=== PATIENT | female | born 1985 | race Caucasian/White ===

== ENCOUNTER 2020-10-20 11:34 | Emergency (ER) | payer OTHER, SELFPAY ==
[2020-10-20 11:44] VITALS: BP 124/69; PULSE 81; RESP 14; TEMP 37.7; O2SAT 99
--- NOTE | 2020-10-20 12:55 | ED.URI ---
HPI - URI/Sore Throat General Chief Complaint: Upper Respiratory Infection Stated Complaint: Sore Throat, sneezing, congestion Source: patient and RN notes reviewed Mode of arrival: ambulatory Limitations: no limitations History of Present Illness HPI Narrative: 34-year-old female who presents to [facility] with complaints of stuffy nose, sinus drainage which is green in color, sneezing, sore throat, and headache for the past 2 days. Patient states that she has increased pain with swallowing. Patient reports that she has been taking Benadryl and Ibuprofen for her symptoms. Patient reports that she is unsure if any fevers but has had some feelings of being hot and cold. Patient denies ny acute cough, no shortness of breath or wheezing, denies any ear pain. MD elicited complaint: sore throat, rhinorrhea, nasal congestion and other (Headache) Related Data Home Medications Medication Instructions Recorded Confirmed cholecalciferol (vitamin D3) 25 mcg PO DAILY 10/20/20 10/20/20 [Vitamin D3] cyanocobalamin (vitamin B-12) 100 mcg PO DAILY 10/20/20 10/20/20 [Vitamin B-12] drospirenone-ethinyl estradiol 1 tablet PO DAILY 10/20/20 10/20/20 [Vestura (28)] Allergies Allergy/AdvReac Type Severity Reaction Status Date / Time No Known Allergies Allergy Verified 10/20/20 11:55 Review of Systems Review of Systems: CONSTITUTIONAL:Unknown if fevers, positive for chills, or sweats. EYES: Denies visual changes, redness, or discharge. ENT: Positive for rhinorrhea, congestion, sore throat, no otalgia. CARDIOVASCULAR: Denies chest pain, palpitations, or edema. RESPIRATORY: Denies cough or dyspnea. GASTROINTESTINAL: Denies abdominal pain, nausea, vomiting, or diarrhea. GENITOURINARY: Denies dysuria or hematuria. SKIN: Denies rash or itching. MUSCULOSKELETAL: Denies back pain, joint pain, or myalgia. NEUROLOGIC: Positive for headache,no numbness, or weakness. PSYCHIATRIC: Denies anxiety or depression. All systems reviewed & are unremarkable except as noted in HPI and below PMFSH Past Medical History Medical History (Updated 10/25/20 @ 08:09 by Netta Tiwari NP) Endometriosis Fracture of left wrist Surgical History Surgical History (Updated 10/25/20 @ 08:02 by Netta Tiwari NP) History of removal of ovarian cyst Family History Family History (Updated 10/25/20 @ 08:03 by Netta Tiwari NP) Other No significant family history Social History Social History (Updated 10/25/20 @ 08:05 by Netta Tiwari NP) Smoking status: Former smoker Tobacco type: cigarettes Additional smoking assessment comments: quit tobacco use 06/2020 after 10 years, now vapes Alcohol intake: current Alcohol use details: rare social Substance use type: does not use Living arrangements: with family Gender identity (if verbalized by the patient): Female Comments At time of signature, agree with nursing past medical, surgical, social and family history. There is no relevant family history pertinent to the presenting complaint Exam Narrative: GENERAL: Well-appearing, well-nourished, and in no acute distress. HEAD: Normocephalic, atraumatic. EYES: PERRLA and EOMI. ENT: Nares red with turbinates red and swollen, green rhinorrhea no epistaxis. Mucous membranes moist.TM's normal with dull light reflex, throat red with no tonsil swelling or lesion, post nasal drainage noted, headache and maxillary facial pressure noted. NECK: Supple.no lymphadenopathy CHEST: Clear to auscultation. No respiratory distress.rare cough noted, SAO2 99% on room air HEART: Regular rate and rhythm. No murmur heard. Normal peripheral pulses. ABDOMEN: Soft, nontender, nondistended, normal active bowel sounds. EXTREMITIES: Normal range of motion. No edema. SKIN: Warm, dry, no rash. NEURO: No focal deficits. Alert and oriented x3. Course Vital Signs Vital signs: Vital Signs Temperature 37.7 C H 10/20/20 11:44 Pulse Rate 81
== END 2020-10-20 13:14 | disposition home or self-care (01) ==
PROVIDERS: Emergency Provider Registered Nurse; PCP Family Medicine
DX: J32.9 Chronic sinusitis, unspecified (principal)
CPT/HCPCS: 87081; 87880; 99213; G0463

== ENCOUNTER 2021-12-20 18:48 | Emergency (ER) | payer OTHER, SELFPAY ==
[2021-12-20 18:54] VITALS: BP 130/78; PULSE 71; RESP 16; TEMP 36.9; O2SAT 99
--- NOTE | 2021-12-20 20:00 | ED.GENADULT ---
HPI - General Adult General Chief complaint: Upper Respiratory Infection Stated complaint: Sore Throat/Ear Pain Source: patient and family Mode of arrival: ambulatory Limitations: no limitations History of Present Illness HPI narrative: Patient presents for evaluation of sore throat for the last month. She reports sharp left-sided ear pain as well. No fever, chills, nausea, vomiting, respiratory symptoms. No recent sick contacts to her knowledge. She notices her symptoms more with certain positional movements of her head. She does vape but has not changed products as of late. She has a history of acid reflux but is no longer on medication for it. No additional complaints or concerns. Related Data Home Medications Medication Instructions Recorded Confirmed drospirenone 3 mg-ethinyl 1 tablet PO DAILY 10/20/20 10/20/20 estradiol 0.02 mg tablet (Vestura (28)) Allergies Allergy/AdvReac Type Severity Reaction Status Date / Time No Known Allergies Allergy Verified 10/20/20 11:55 Review of Systems Review of Systems: CONSTITUTIONAL: Denies fever, chills, or sweats. EYES: Denies visual changes, redness, or discharge. ENT: Reports sore throat and left-sided ear pain. Denies rhinorrhea, congestion. CARDIOVASCULAR: Denies chest pain, palpitations, or edema. RESPIRATORY: Denies cough or dyspnea. GASTROINTESTINAL: Denies abdominal pain, nausea, vomiting, or diarrhea. GENITOURINARY: Denies dysuria or hematuria. SKIN: Denies rash or itching. MUSCULOSKELETAL: Denies back pain, joint pain, or myalgia. NEUROLOGIC: Denies headache, numbness, dizziness, or weakness. PSYCHIATRIC: Denies anxiety or depression. [facility] Past Medical History Medical History Endometriosis Fracture of left wrist GERD (gastroesophageal reflux disease) Surgical History Surgical History History of removal of ovarian cyst Family History Family History Other No significant family history Social History Social History Smoking status: Former smoker Tobacco type: cigarettes Additional smoking assessment comments: quit tobacco use 06/2020 after 10 years, now vapes Alcohol intake: current Alcohol use details: rare social Substance use type: does not use Gender identity (if verbalized by the patient): Female Exam Narrative: GENERAL: Well-appearing, well-nourished, and in no acute distress. HEAD: Normocephalic, atraumatic. EYES: PERRLA and EOMI. ENT: Nares clear, no rhinorrhea or epistaxis. Mucous membranes moist. Posterior pharyngeal erythema without exudate. Uvula is midline.. Bilateral TMs pearly rose nonbulging NECK: Supple. No adenopathy or masses. No carotid bruits or JVD CHEST: Clear to auscultation. No respiratory distress. No wheezes rales or rhonchi HEART: Regular rate and rhythm. No murmur heard. Normal peripheral pulses. ABDOMEN: Soft, nontender, nondistended, normal active bowel sounds. EXTREMITIES: Normal range of motion. No edema. SKIN: Warm, dry, no rash. NEURO: No focal deficits. Alert and oriented x3. PSYCH: Normal mood and affect. Course Course Emergency Course: This is a 35-year-old female who presented for evaluation of sore throat for the last month. Strep testing and GC testing were obtained. This is a somewhat atypical presentation. I advised that we may not be able to identify the source of her problem tonight and may require follow-up testing. This could indeed be related to acid reflux we will place her on a PPI. We can cover her with some antibiotics. Advised that she discuss potential thyroid testing with her primary care provider and may need endoscopy if symptoms persist. Advised that vaping may be contributory to her symptoms. She will contact her prim
== END 2021-12-20 20:07 | disposition home or self-care (01) ==
PROVIDERS: Emergency Provider Nurse Practitioner; PCP Family Medicine
DX: J02.9 Acute pharyngitis, unspecified (principal); K21.9 Gastro-esophageal reflux disease without esophagitis; N80.9 Endometriosis, unspecified; Z87.891 Personal history of nicotine dependence
CPT/HCPCS: 36415; 87081; 87491; 87591; 87880; 99213; G0463

== ENCOUNTER 2023-07-23 08:07 | Emergency (ER) | payer OTHER, SELFPAY ==
[2023-07-23 08:12] VITALS: BP 127/75; PULSE 71; RESP 20; TEMP 36.2; O2SAT 99
--- NOTE | 2023-07-23 08:13 | ED.URI ---
HPI - URI/Sore Throat General Chief Complaint: Upper Respiratory Infection Stated Complaint: throat Time Seen by Provider: 07/23/23 08:20 Source: patient, RN notes reviewed and old records reviewed Mode of arrival: ambulatory Limitations: no limitations History of Present Illness HPI Narrative: 37-year-old female presents to [facility] with complaints of sore throat which started last night and headache discomfort. Patient reports that she has not had any fever or chills or any body aches. Reports she has not taken any medication for her symptoms. MD elicited complaint: sore throat Onset (ago): day(s) (1) Severity: mild Able to tolerate fluids by mouth: Yes Treatments prior to arrival: none Related Data Home Medications Medication Instructions Recorded Confirmed drospirenone 3 mg-ethinyl 1 tablet PO DAILY 10/20/20 12/20/21 estradiol 0.02 mg tablet (Vestura (28)) Allergies Allergy/AdvReac Type Severity Reaction Status Date / Time No Known Allergies Allergy Verified 10/20/20 11:55 Review of Systems Review of Systems: CONSTITUTIONAL: Denies malaise, chills, sweats, or fever. EYES: Denies visual changes, redness, or discharge. ENT: Reports no rhinorrhea, congestion, sinus pain,no otalgia and positive sore throat. CARDIOVASCULAR: Denies chest pain, palpitations, or edema. RESPIRATORY: Reports no cough.? Denies dyspnea. GASTROINTESTINAL: Denies abdominal pain, nausea, vomiting, diarrhea SKIN: Denies rash or itching. MUSCULOSKELETAL: Denies myalgia. NEUROLOGIC: Reports headache. All systems reviewed & are unremarkable except as noted in HPI and below PMFSH Past Medical History Medical History Endometriosis Fracture of left wrist GERD (gastroesophageal reflux disease) Surgical History Surgical History History of removal of ovarian cyst Family History Family History Other No significant family history Social History Social History Smoking status: Former smoker Tobacco type: cigarettes Additional smoking assessment comments: quit tobacco use 06/2020 after 10 years, now vapes Alcohol intake: current Alcohol use details: rare social Substance use type: does not use Living arrangements: with family Gender identity (if verbalized by the patient): Female Comments At time of signature, agree with nursing past medical, surgical, social and family history. There is no relevant family history pertinent to the presenting complaint Exam Narrative: GENERAL: Well-appearing, well-nourished, and in no acute distress. HEAD: Normocephalic EYES: PERRLA, conjunctivae clear ENT: Nares clear, turbinates edematous and erythematous, clear discharge. Mucous membranes moist. TM pearly rose with dull light reflex bilaterally; no tragal tenderness. Oropharynx erythematous without lesions. Tonsils not enlarged and without exudate, no drooling, no hoarseness, no trismus, uvula midline. NECK: Supple. No lymphadenopathy CHEST: Clear to auscultation, breath sounds equal. No wheezing, rhonchi, rales, or stridor. No respiratory distress, speaks in full sentences.SAO2 99% on room air HEART: Regular rate and rhythm. No murmur heard. SKIN: Warm, dry, no rash. NEURO: Alert and oriented x3. PSYCH: Normal mood and affect Course Course Emergency Course: Patient is aware of diagnosis, understands and agrees to treatment plan.? Anticipatory guidance given.? Patient agrees to follow-up as directed and is aware of reasons to seek care at the emergency department. Portions of this record may have been created with voice recognition software Level of Care: Express Care Visit Vital Signs Vital signs: Reviewed MDM - URI/Sore Throat MDM Narrative Medical de
== END 2023-07-23 08:49 | disposition home or self-care (01) ==
PROVIDERS: Emergency Provider Registered Nurse; PCP Family Medicine
DX: J02.0 Streptococcal pharyngitis (principal); K21.9 Gastro-esophageal reflux disease without esophagitis; Z87.891 Personal history of nicotine dependence
CPT/HCPCS: 87880; 99213; G0463